=== PATIENT | female | born 1985 | race Caucasian/White ===

== ENCOUNTER → 2017-09-05 | Outpatient (CLI) | payer OTHER | END | disposition home or self-care (01) | LOC: C.PAPS 16:29 | PROVIDERS: ATTEND Obstetrics & Gynecology | DX: Z12.4 Encounter for screening for malignant neoplasm of cervix (principal) ==

== ENCOUNTER 2019-06-26 07:44 | Inpatient (IN) ==
[2019-06-26] MEDS ORDERED: OXYTOCIN 30 UNITS/500 ML BAG IV PRN ×3 (09:04→20:37)
[2019-06-26] MEDS: LACTATED RINGER'S 1,000 ML IV PRN ×3 (09:20→17:44)
[2019-06-26 09:39] LABS: Hematocrit (blood only) 35.9 % (37-47); Hemoglobin 12.5 g/dL (12.0-16.0); Mean Corpuscular Hemoglobin 32.8 pg (25-34); Mean Corpuscular Volume 94.2 fL (80-100); Platelet Count 217 K/uL (130-400); RDW Coefficient of Variation 12.6 % (11.5-14.5); RDW Standard Deviation 43.1 fL (36.4-46.3); Red Blood Count 3.81 M/uL (4.2-5.4); White Blood Count 10.92 K/uL (4.8-10.8)
[2019-06-26 09:43] LABS: Mean Corpuscular Hgb Conc 34.8 g/dL (32-36)
--- NOTE | 2019-06-26 13:28 | Labor Progress Brief Note ---
Date of Service June 26, 2019 Subjective Reason For Note: Routine Evaluation Tolerating Contractions Assessment & Plan (1) Elderly primigravida, antepartum: Induction for post dates. On pitocin. Unable to AROM despite attempt with amnihook and finger cot. Will allow a few more hours' progress then try again. Patient not interested in epidural yet. Pit @ 11. Present on Admission?: Yes Physical Exam Genitourinary: Manual OB Exam: + cervical dilation 3 cm, + cervical effacement 90%, + station -2 and + amniotic fluid (attempt to AROM but not successful.) OB Exam Monitor Tracing: + external FHT monitor used (Cat 1), + external uterine monitor used (?Q2 when well traced. Lots of maternal repositioning artifact.) and + category I Results & Data Vital Signs (Past 12 Hours) Vital Signs Temp Pulse Resp BP 06/26/19 12:31 76 20 131/66 06/26/19 11:30 75 118/62 06/26/19 11:29 98.4 F 22 06/26/19 10:36 79 118/68 06/26/19 10:35 20 06/26/19 09:31 76 118/65 06/26/19 07:52 93 H 125/72 06/26/19 07:51 98.2 F 93 H 20 125/72
--- NOTE | 2019-06-26 16:22 | Labor Progress Brief Note ---
Date of Service June 26, 2019 Subjective Tolerating Contractions Assessment & Plan (1) Elderly primigravida, antepartum: Induction for post dates. On pitocin, reduced earlier per RN for tachysystole. Unable to AROM despite yet another attempt with amnihook. Patient with poor tolerance of exam. Encouraged epidural; she wanted a few minutes to consider before making decision. Physical Exam Genitourinary: Manual OB Exam: + cervical dilation (3-4cm) 3 cm, + cervical effacement 90%, + station -2 and + amniotic fluid (attempt to AROM again not successful.) OB Exam Monitor Tracing: + external FHT monitor used (Cat 1), + external uterine monitor used (?Q2 when well traced. Lots of maternal repositioning artifact.) and + category I Results & Data Vital Signs (Past 12 Hours) Vital Signs Temp Pulse Resp BP 06/26/19 14:48 71 135/78 06/26/19 13:33 76 20 131/74 06/26/19 13:00 18 06/26/19 12:31 76 20 131/66 06/26/19 11:30 75 118/62 06/26/19 11:29 98.4 F 22 06/26/19 10:36 79 118/68 06/26/19 10:35 20 06/26/19 09:31 76 118/65 06/26/19 07:52 93 H 125/72 06/26/19 07:51 98.2 F 93 H 20 125/72
[2019-06-26] MEDS ORDERED: ePHEDrine sulfate 50 MG/ML AMP ONE (17:06)
[2019-06-26] MEDS ORDERED: BUPIVACAINE 0.25% 30 ML VIAL ONE (17:06)
[2019-06-26] MEDS ORDERED: fentaNYL 2MCG/ML ROPIV 1.25MG/ML 100 ML BAG EPI ONE (17:07)
[2019-06-26] MEDS: fentaNYL citrate 100 MCG/2 ML VIAL ONE ×2 (17:45→18:01)
--- NOTE | 2019-06-26 17:53 | Anesthesiology Consultation ---
Date of Service June 26, 2019 Assessment & Plan Chart Review Chart Review: Acceptable Risk for Labor Epidural Consults Requested none History Height/Weight Height: 5 ft 3.5 in Weight: 81.647 kg Allergies Allergy/AdvReac Type Severity Reaction Status Date / Time No Known Drug Allergies Allergy Unknown Verified 06/26/19 08:44 Medications Home Medications Medication Instructions Recorded Confirmed Last Taken levothyroxine 50 mcg PO DAILY 06/23/19 06/26/19 06/26/19 06:00 vit no.720-[id number] 1 tab PO DAILY 06/23/19 06/26/19 06/25/19 20:00 [ Vitamin] Active Medications Generic Name Dose Route Start Last Admin Trade Name Freq PRN Reason Stop Dose Admin Lactated Ringer's 1,000 mls @ 125 mls/hr 06/26/19 09:04 06/26/19 17:44 Lr IV 06/28/19 09:03 125 mls/hr .Q8H PRN Administration L&D Protocol Protocol Oxytocin 30 units in 500 mls @ 5 mls/hr 06/26/19 09:04 06/26/19 14:36 Pitocin IV 06/28/19 09:03 0.3 units/hr .Q24H PRN 5 mls/hr Labor Induction/Augmentation Titration Protocol 0.3 UNITS/HR Past Medical History Medical History Endometrial polyp Female infertility Hypothyroidism No known health problems Past Family History Family History Grandmother (Paternal) Family hx of colon cancer Heart disease Hypertension Grandfather (Paternal) Heart disease Mother Hypertension Other Ovarian cancer Past Surgical History Surgical History History of oral surgery History of tooth extraction wisdom teeth S/P dilation and curettage Social History Smoking Status: Never smoker Do You Dip or Chew Tobacco: No Hx Alcohol Use: No Alcohol type: beer alcohol intake frequency: a few times a month Hx Substance Use: No substance use type: does not use Physical Exam Vital Signs Last Vital Signs Temp 36.8 C 06/26/19 16:34 Pulse 100 H 06/26/19 17:51 Resp 24 06/26/19 16:34 BP 132/61 06/26/19 17:51 Pulse Ox 97 06/26/19 17:50 Testing Laboratory Results 06/26/19 09:14
[2019-06-26] MEDS ORDERED: ePHEDrine sulfate 50 MG/ML AMP IV PRN (17:54)
[2019-06-26] MEDS ORDERED: fentaNYL 2MCG/ML ROPIV 1.25MG/ML 100 ML BAG EPI PRN (17:54)
[2019-06-26] MEDS ORDERED: NALOXONE HCL 1 MG in SODIUM CHLORIDE 0.9% 1000ML 1,000 ML IV PRN (17:54)
[2019-06-26] MEDS ORDERED: DiphenhydrAMINE HCL 50 MG/ML VIAL IV PRN (17:54)
[2019-06-26] MEDS ORDERED: NALOXONE HCL 0.4 MG/1 ML VIAL/CARP IV PRN (17:54)
[2019-06-26] MEDS ORDERED: NALBUPHINE HCL INJ 10 MG/ML AMP IV PRN (17:54)
[2019-06-26] MEDS ORDERED: LIDOCAINE HCL 2% MPF (LOCAL) 5 ML VIAL INFIL ONE (17:58)
--- NOTE | 2019-06-26 18:26 | Labor Progress Brief Note ---
Date of Service June 26, 2019 Subjective Patient comfortable with epidual per RN. Using peanut ball. Resting. Assessment & Plan (1) Elderly primigravida, antepartum: Patient continues postdates induction. Now ruptured, on pitocin, with e pidural, and resting. Present on Admission?: Yes Physical Exam Physical Exam: No cervix check at this time. SROM has now occurred with LOF clear per RN. FHT Cat 1. [place] Q2min. Results & Data Vital Signs (Past 12 Hours) Vital Signs Temp Pulse Resp BP Pulse Ox 06/26/19 18:24 79 154/70 H 06/26/19 18:20 88 97 06/26/19 18:19 86 130/68 06/26/19 18:15 93 H 96 06/26/19 18:13 77 131/60 94 06/26/19 18:10 99 H 135/64 97 06/26/19 18:05 81 98 06/26/19 18:03 112 H 132/61 06/26/19 18:01 86 142/67 H 06/26/19 18:00 84 99 06/26/19 17:59 94 H 133/63 06/26/19 17:57 82 128/63 06/26/19 17:55 102 H 122/61 95 06/26/19 17:53 111 H 123/60 06/26/19 17:51 100 H 132/61 06/26/19 17:50 101 H 97 06/26/19 17:49 83 128/61 06/26/19 17:47 82 128/64 06/26/19 17:45 97 H 123/56 L 99 06/26/19 17:43 110 H 125/58 L 06/26/19 17:41 100 H 124/55 L 06/26/19 17:40 100 H 100 06/26/19 17:35 106 H 100 06/26/19 17:30 102 H 100 06/26/19 17:25 99 H 99 06/26/19 16:34 98.2 F 86 24 128/82 06/26/19 14:48 71 135/78 06/26/19 13:33 76 20 131/74 06/26/19 13:00 18 06/26/19 12:31 76 20 131/66 06/26/19 11:30 75 118/62 06/26/19 11:29 98.4 F 22 06/26/19 10:36 79 118/68 06/26/19 10:35 20 06/26/19 09:31 76 118/65 06/26/19 07:52 93 H 125/72 06/26/19 07:51 98.2 F 93 H 20 125/72
--- NOTE | 2019-06-26 20:32 | Delivery Summary ---
Vaginal Delivery Summary Date of Service June 26, 2019 Vaginal Delivery Summary DIAGNOSES: 1. Vines intrauterine at 41 3/7 gestation. 2. Induction of labor. 3. Group B Streptococcus Neg. PROCEDURE: Spontaneous vaginal delivery and repair of 1st degree laceration. SURGEON: Nevaeh Dhillon MD. WEAPONS DESIGNER: None. ESTIMATED BLOOD LOSS: 350 mL. COMPLICATIONS: None. PLACENTA: Spontaneous and intact with a 3-vessel cord. DISPOSITION: Stable to labor and delivery. DESCRIPTION: The patient pushed well and brought the head to in OA position. The 's head was allowed to deliver with contraction force and no further active pushing, with the perineum protected during this time. The shoulders delivered easily with a maternal pushing effort. There was no nuchal cord. The left shoulder was anterior. The shoulders and body delivered without any difficulty, and the infant was placed on the maternal abdomen. There was noted to be terminal meconium. The was vigorous and moving all extremities, and making respiratory efforts. The cord was doubly clamped by the MD and then cut by the FOB. The placenta delivered spontaneously and was noted to be intact and with a 3VC. The cervix, vagina and perineum were examined and were found to have a first degree laceration that was repaired for cosmesis. The fundus was firm and lochia minimal immediately after delivery.
[2019-06-26] MEDS ORDERED: IBUPROFEN 600 MG TAB PO ONE (20:35)
[2019-06-26] MEDS ORDERED: BENZOCAINE 20% AER SPR 82.5 GM CAN EXT PRN (20:37)
[2019-06-26] MEDS ORDERED: OXYCODONE/ACETAMINOPHEN 5mg/325mg TAB PO PRN (20:37)
[2019-06-26] MEDS ORDERED: DIPHTHERIA/TETANUS/PERTUSSIS 0.5 ML SYR/VIAL IM ONE (20:37)
[2019-06-26] MEDS ORDERED: HYDROCORTISONE ACETATE 25 MG SUPP PR PRN (20:37)
[2019-06-26] MEDS ORDERED: ACETAMINOPHEN 325 MG TAB PO PRN (20:37)
[2019-06-26] MEDS ORDERED: SUPERCREAM 0.870% 15 GM JAR EXT PRN (20:37)
--- NOTE | 2019-06-26 20:56 | Anesthesia Procedure Note ---
Date of Service June 26, 2019 Anesthesia Post Epidural Note Vital Signs Vital Signs: Temp Pulse Resp BP Pulse Ox 36.8 C 114 H 18 123/66 97 06/26/19 16:34 06/26/19 20:46 06/26/19 20:46 06/26/19 20:46 06/26/19 20:25 Pain Intensity Bilateral Lower Abdomen: Pain Intensity: 4 Notes Mental Status: alert / awake / arousable Nausea / Vomiting: adequately controlled Pain: adequately controlled Airway Patency, RR, SpO2: stable & adequate BP & HR: stable & adequate Hydration State: stable & adequate Neuraxial Anesthesia: was administered and sensory block is resolving Anesthetic Complications: no major complications apparent and Pt Satisfied with anesthetic care Epidural: Removed without complications and With tip intact
[2019-06-27] MEDS: IBUPROFEN 600 MG TAB PO PRN ×5 (00:38→20:35)
[2019-06-27] MEDS: DOCUSATE SODIUM 100 MG CAP PO SCH ×4 (02:55→20:35)
[2019-06-27] MEDS: LEVOTHYROXINE SODIUM 50 MCG TABLET PO SCH (06:15)
--- NOTE | 2019-06-27 07:12 | Obstetrical Progress Note ---
Date of Service June 27, 2019 Assessment & Plan (1) Encounter for care and examination after delivery: 34 yo PPD1 s/p on 06/26. Doing well this AM, no complaints. Tolerating regular diet, encouraged ambulation around hallways. Continue supportive care, will consider discharge tomorrow. Day #:: 1 Subjective Ambulation: limited ambulation Voiding: no voiding problems Passing Gas:: Yes Diet Tolerance:: regular diet Lochia:: Moderate Feeding Type:: breast feeding Current Pain Level(1-10): 0 Physical Exam Constitutional well developed and well nourished Respiratory normal respiratory effort; no respiratory distress, no labored breathing and no cough Auscultation: no crackles, no rales, no rhonchi and no wheezes Cardiovascular Rate/Rhythm: regular rate and regular rhythm Heart Sounds: no gallop, no murmur and no cardiac rub Extremities: + pedal edema Gastrointestinal (Abdomen) Inspection/Auscultation: + abdomen distended and normal bowel sounds Percussion/Palpation: + abdomen tender (reasonably) and abdomen soft; no guarding Musculoskeletal No calf pain or tenderness to palpation. Genitourinary Uterus firm, palpable at umbilicus. Results & Data Vital Signs (Past 12 Hours) Vital Signs Temp Pulse Pulse Resp BP BP Pulse Ox 06/27/19 04:45 37.0 C 80 16 128/77 96 06/27/19 00:05 36.8 C 90 17 121/69 95 06/26/19 23:00 37.2 C 06/26/19 22:46 100 H 134/61 06/26/19 22:31 103 H 18 134/62 06/26/19 22:16 105 H 129/64 06/26/19 22:01 102 H 18 138/82 06/26/19 21:46 100 H 132/76 06/26/19 21:31 102 H 18 134/77 06/26/19 21:16 110 H 18 130/65 06/26/19 21:01 109 H 18 122/65 06/26/19 20:46 114 H 18 123/66 06/26/19 20:31 109 H 18 126/68 06/26/19 20:25 121 H 97 06/26/19 20:20 115 H 97 06/26/19 20:15 142 H 98 06/26/19 20:14 169 H 93 06/26/19 20:10 162 H 96 06/26/19 20:07 169 H 93 06/26/19 20:05 165 H 97 06/26/19 20:02 137 H 89 L 06/26/19 20:00 155 H 96 06/26/19 19:58 137 H 142/64 H 06/26/19 19:56 146 H 94 06/26/19 19:55 127 H 98 06/26/19 19:50 139 H 97 06/26/19 19:46 135 H 93 06/26/19 19:45 136 H 98 06/26/19 19:44 137 H 140/74 06/26/19 19:40 146 H 99 06/26/19 19:35 129 H 96 06/26/19 19:30 114 H 99 06/26/19 19:29 118 H 94 06/26/19 19:25 97 H 98 06/26/19 19:20 82 99 06/26/19 19:15 120 H 98 06/26/19 19:13 92 H 145/76 H 06/26/19 19:10 109 H 98 Resident Activity Tracking Resident Involvement: Resident Care Provided Care Provided: OB Delivery
[2019-06-27] MEDS: LACTATED RINGER'S 1,000 ML IV SCH ×2 (07:17→13:07)
[2019-06-27 08:06] LABS: Hematocrit (blood only) 30.6 % (37-47); Hemoglobin 10.7 g/dL (12.0-16.0); Mean Corpuscular Volume 91.6 fL (80-100); Mean Platelet Volume 9.6 fL (7.4-10.4); Platelet Count 202 K/uL (130-400); RDW Coefficient of Variation 12.5 % (11.5-14.5); RDW Standard Deviation 41.9 fL (36.4-46.3); Red Blood Count 3.34 M/uL (4.2-5.4); White Blood Count 20.31 K/uL (4.8-10.8)
[2019-06-27] MEDS: PRENATAL VITAMIN 1 TAB PO SCH (09:53)
[2019-06-28] MEDS: IBUPROFEN 600 MG TAB PO PRN ×2 (04:16→08:32)
[2019-06-28] MEDS: LEVOTHYROXINE SODIUM 50 MCG TABLET PO SCH (06:02)
--- NOTE | 2019-06-28 06:19 | Obstetrical Progress Note ---
Date of Service <Ariane Davey MD - Last Filed: 06/28/19 07:18> June 28, 2019 Assessment & Plan <Ariane Davey MD - Last Filed: 06/28/19 07:18> (1) Encounter for care and examination after delivery: 34 yo F PPD2 s/p with rapid progression into labor. Doing well with no complaints. WBC peaked at 20k but is now downtrending to 12.26k. Hg stable at 10. Discussed discharge instructions and signs for concern and calling the office. D/C home today. Subjective <Ariane Davey MD - Last Filed: 06/28/19 07:18> Ambulation: ambulating normally Voiding: no voiding problems Passing Gas:: Yes Diet Tolerance:: regular diet Lochia:: Small Feeding Type:: breast feeding Current Pain Level(1-10): 0 Doing well this AM, no complaints. Discussed discharge instructions and reasons to come back in to the office. All questions were answered. Constitutional: + fatigue; no fever and no chills Respiratory: no cough and no dyspnea No shortness of breath Cardiovascular: + edema; no chest pain, no syncope and no calf pain Breast: no breast pain Gastrointestinal: + cramping; no abdominal pain, no nausea, no vomiting, no constipation and no diarrhea/loose stools Genitourinary (female): no dysuria and no difficulty urinating Neurologic: no headache(s) Physical Exam <Ariane Davey MD - Last Filed: 06/28/19 07:18> Constitutional well developed and well nourished Respiratory normal respiratory effort; no respiratory distress, no labored breathing and no cough Auscultation: no crackles, no rales, no rhonchi and no wheezes Cardiovascular Rate/Rhythm: regular rate and regular rhythm Heart Sounds: no gallop, no murmur and no cardiac rub Extremities: no pedal edema Gastrointestinal (Abdomen) Inspection/Auscultation: + abdomen distended and normal bowel sounds Percussion/Palpation: abdomen soft; abdomen nontender (reasonably) and no guarding Musculoskeletal no tenderness to palpation of calves bilaterally Genitourinary Uterus small and firm, palpable in midline at level of umbilicus, some tenderness to palpation. Results & Data <Ariane Davey MD - Last Filed: 06/28/19 07:18> Vital Signs (Past 12 Hours) Vital Signs Temp Pulse Pulse Resp BP Pulse Ox 06/27/19 23:25 36.8 C 76 18 123/71 06/27/19 19:30 36.6 C 83 18 132/76 97 06/28/19 06/27/19 Range/Units 06:17 06:43 WBC 12.26 H 20.31 H (4.8-10.8) K/uL RBC 3.05 L 3.34 L (4.2-5.4) M/uL Hgb 10.0 L 10.7 L (12.0-16.0) g/dL Hct 29.1 L 30.6 L (37-47) % MCV 95.4 91.6 (80-100) fL MCH 32.8 32.0 (25-34) pg MCHC 34.4 35.0 (32-36) g/dL RDW Std Deviation 44.2 41.9 (36.4-46.3) fL RDW Coeff of [place] 12.7 12.5 (11.5-14.5) % Plt Count 174 202 (130-400) K/uL MPV 9.4 9.6 (7.4-10.4) fL Immature Gran % (Auto) 0.4 % Neut % (Auto) 67.1 % Lymph % (Auto) 24.1 % [place] % (Auto) 6.3 % Eos % (Auto) 2.0 % Baso % (Auto) 0.1 % Immature Gran # (Auto) 0.05 H (0.00-0.02) K/uL Neut # (Auto) 8.23 H (1.4-6.5) K/uL Lymph # (Auto) 2.96 (1.2-3.4) K/uL [place] # (Auto) 0.77 H (0.11-0.59) K/uL Eos # (Auto) 0.24 (0-0.5) K/uL Baso # (Auto) 0.01 (0-0.2) K/uL <Norm Olivarez Jr, MD, FACOG - Last Filed: 06/28/19 07:48> Co-Signing Physician Notes Resident Physician Supervision Note: I was present with Dr. Davey during the history and exam. I discussed the case with the resident and agree with the findings and plan as documented in the note. Any exceptions or clarifications are listed here: Doing well. D/C instructions given/reviewed/ F/U in 6 weeks for PP check Documented By: Norm Olivarez Jr, MD, FACOG Resident Activity Tracking <Ariane Davey MD - Last Filed: 06/28/19 07:18> Resident Involvement: Resident Care Provided Care Provided: OB Delivery
[2019-06-28 06:26] LABS: Basophils # (auto) 0.01 K/uL (0-0.2); Basophils % (auto) 0.1 %; Eosinophils # (auto) 0.24 K/uL (0-0.5); Hematocrit (blood only) 29.1 % (37-47); Immature Granulocytes # (auto) 0.05 K/uL (0.00-0.02); Immature Granulocytes % (auto) 0.4 %; Lymphocytes # (auto) 2.96 K/uL (1.2-3.4); Lymphocytes % (auto) 24.1 %; Mean Corpuscular Hemoglobin 32.8 pg (25-34); Mean Corpuscular Hgb Conc 34.4 g/dL (32-36); Mean Corpuscular Volume 95.4 fL (80-100); Mean Platelet Volume 9.4 fL (7.4-10.4); Monocytes # (auto) 0.77 K/uL (0.11-0.59); Monocytes % (auto) 6.3 %; Neutrophils # (auto) 8.23 K/uL (1.4-6.5); Neutrophils % (auto) 67.1 %; Platelet Count 174 K/uL (130-400); RDW Coefficient of Variation 12.7 % (11.5-14.5); RDW Standard Deviation 44.2 fL (36.4-46.3); Red Blood Count 3.05 M/uL (4.2-5.4); White Blood Count 12.26 K/uL (4.8-10.8)
[2019-06-28] MEDS: DOCUSATE SODIUM 100 MG CAP PO SCH (08:32)
[2019-06-28] MEDS: PRENATAL VITAMIN 1 TAB PO SCH (11:58)
== END 2019-06-28 13:26 | disposition home or self-care (01) | DRG 807 ==
LOC: 4S1 07:44 → 4S2 23:57

== ENCOUNTER 2022-06-14 07:48 | Inpatient (IN) ==
[2022-06-14] MEDS ORDERED: LACTATED RINGER'S 1,000 ML IV PRN (07:49)
[2022-06-14] MEDS ORDERED: OXYTOCIN 30 UNITS/500 ML BAG IV PRN ×3 (07:49→15:12)
[2022-06-14] MEDS ORDERED: LIDOCAINE 1% LOCAL 20 ML VIAL INFIL PRN (07:49)
[2022-06-14 08:38] LABS: Hematocrit (blood only) 32.4 % (34.1-44.9); Hemoglobin 11.2 g/dl (12.0-16.0); Mean Corpuscular Hemoglobin 32.6 pg (25.0-34.0); Mean Corpuscular Hgb Conc 34.6 g/dL (32.0-36.0); Mean Corpuscular Volume 94.2 fL (80.0-100.0); Mean Platelet Volume 10.5 fL (9.4-12.3); Platelet Count 170 K/uL (130-400); RDW Coefficient of Variation 12.4 % (11.5-14.5); RDW Standard Deviation 42.5 fL (36.4-46.3); Red Blood Count 3.44 M/uL (3.93-5.22); White Blood Count 10.81 K/ul (4.8-10.8)
--- NOTE | 2022-06-14 08:47 | Labor Progress Brief Note ---
Date of Service June 14, 2022 Subjective Patient admitted for planned IOL. Cramping yesterday, minimal now. Hoping to attempt NCB. Assessment & Plan (1) Supervision of elderly multigravida: Plan: Induction with pitocin to begin this morning, AROM at future exam. Epidural if desired which currently the patient is not planning on. Admission and Anticipated Discharge Date Admission Date: June 14, 2022 Physical Exam Genitourinary: 50/-2 Intact membranes FHT Cat 1 with +scalp stim during exam [place] irregular/rare ctx Vertex palpable, presenting at cervix Results & Data ([facility]) Vital Signs (Past 12 Hours) Vital Signs Temp Pulse Resp BP 06/14/22 07:58 18 06/14/22 07:58 98.2 F 18 06/14/22 08:01 85 142/76 H Coding Level of Care Code None Diagnoses Supervision of elderly multigravida O09.529
--- NOTE | 2022-06-14 08:48 | History & Physical Report ---
Date of Service June 14, 2022 Assessment & Plan (1) Encounter for induction of labor: Plan: Patient is a 37 yo at 41+1 WGA presenting to labor and delivery for induction d/t postdates. Blood type: A+, GBS neg, rubella 13 index Plan to start oxytocin and rupture membranes later if necessary Proceed with labor and vaginal delivery (2) Post-dates : Admission and Anticipated Discharge Date Admission Date: June 14, 2022 History of Present Illness Chief Complaint: IOL Primary Care Provider: Ovi Michel III, CRNP Patient is a 37 yo female currently at 41+1WGA with an GEE 06/05/2022 as determined by LMP who is here for IOL d/t postdates. Her was complicated by AMA and hypothyroidism. Pt feeling dull, non painful, nontimeable contractions; movement present; denies fluid loss except for a small amount of what the pt believes was urine when she coughed earlier today; denies bloody show External FHT and external uterine monitors used; category 1 tracing; normal FHT variability Had regular appointments with OB. Labs: 11/2021 Blood type: A+ Antibody screen: neg Hgb: 11.2 (today) Hct: 32.4 (today) WBC: 10.81 (today) Plt: 170 (today) Rubella: 13 index VDRL/RPR: neg Gonorrhea: neg Chlamydia: neg HIV: neg HbSAg: neg GBS: neg Other screens: cff-DNA: declined CF: neg per prior SMA: neg per prior Allergies Allergy/AdvReac Type Severity Reaction Status Date / Time No Known Drug Allergies Allergy Unknown Verified 06/13/22 10:27 Home Medications Medication Instructions Recorded Confirmed Type prenat.vits,suleman,woe-uhrw-opozv 1 tab PO DAILY 10/26/21 06/13/22 History levothyroxine 50 mcg tablet See Rx Instructions .Route 05/26/22 06/13/22 Rx .COMPLEX #90 tabs famotidine 10 mg/mL intravenous 10 mg PO HS 06/13/22 06/13/22 History solution Patient History Medical History Endometrial polyp Female infertility Hypothyroidism No known health problems Supervision of elderly multigravida Uterine fibroid complicating care, baby not yet delivered Surgical History History of oral surgery History of tooth extraction wisdom teeth S/P dilation and curettage Family History Grandmother (Paternal) Family hx of colon cancer Heart disease Hypertension Grandfather (Paternal) Heart disease Mother Hypertension Glaucoma Other Ovarian cancer Denies family history of Prostate cancer Myocardial infarction Breast cancer Colorectal cancer Social History Smoking Status: Never smoker Second Hand Exposure: No; Hx Alcohol Use: No Hx Substance Use: No Preferred Language: Tunisian Communication Ability: Effective Visual Impairment: No Limitations Hearing Ability: Normal Webbing Seamer Pound Net Required: No Beliefs That Will Affect Care: Shinto marital status: marital status details: Arjun Bridges (33) [phone] Current Living Situation: Spouse Current Living Situation Comment: lives with spouse, child, no pets. current occupational status: employed current occupation: [employer] How many Children do You have: 1 Feels Safe at Home: Yes Childhood Exposure to Second-Hand Smoke: No caffeine: Yes during the past year weight has: decreased > 10 lbs Dental Care, Regularly: Yes Physical Activity Frequency: Daily Seatbelt Use: always Sunscreen Use: Yes Assistive Devices: None Review of Systems Denies fever, chills, sweats. Denies SOB, difficulty breathing, chest pain, palpitations, and chest pressure. Denies breast pain. Denies dysuria. Denies headache or changes in vision. Physical Exam Physical Exam: General: Alert and oriented. No acute distress CV: Regular rate and rhythm. No murmurs. Respiratory: CTA bilaterally. No rhonchi, wheezes, or crackles. No increased work of breathing. Abdomen: Gravid; Soft, nontender upon palpation Pelvic: Dilated 4 cm; Effacement 50%; Station -[address] Dhillon Lower extremities: No LE edema. No deep calf pain. Esmer's negative bilaterally. Pt wearing compression socks "prophylactically" Results & Data ([facility]) Vital Signs (Past 12 Hours) Vital Signs Temp Pulse Resp BP 06/14/22 07:58 18 10/12/22 07:58 36.8 C 18 10/12/22 08:01 85 142/76 H Resident Activity Tracking Resident Involvement: Resident Care Provided Care Provided: OB Delivery
[2022-06-14] MEDS ORDERED: BENZOCAINE 20% AER SPR 82.5 GM CAN EXT PRN (15:12)
[2022-06-14] MEDS ORDERED: ACETAMINOPHEN 325 MG TAB PO PRN (15:12)
[2022-06-14] MEDS ORDERED: DIPHTHERIA/TETANUS/PERTUSSIS 0.5 ML SYR/VIAL IM ONE (15:12)
[2022-06-14] MEDS ORDERED: bisacodyL 10 MG SUPP PR PRN (15:12)
[2022-06-14] MEDS ORDERED: HYDROCORTISONE ACETATE 25 MG SUPP PR PRN (15:12)
--- NOTE | 2022-06-14 15:15 | Delivery Summary ---
Vaginal Delivery Summary Date of Service June 14, 2022 Vaginal Delivery Summary [facility] DIAGNOSES: 1. Vines intrauterine at 41w2d gestation. 2. Induction of Labor. 3. Group B Streptococcus Neg. PROCEDURE: Spontaneous vaginal delivery and repair of 1st degree laceration. SURGEON: Nevaeh Dhillon MD. PUBLIC ACCOUNTANT: None. ESTIMATED BLOOD LOSS: 250 mL. COMPLICATIONS: None. PLACENTA: Spontaneous and intact with a 3-vessel cord. DISPOSITION: Stable to labor and delivery. DESCRIPTION: The patient pushed well and brought the head to in OA position. The 's head was allowed to deliver with contraction force and no further active pushing, with the perineum protected during this time. There was no nuchal cord. The left shoulder was anterior. Bulb suction was provided with the head at the perineum due to thick meconium. The mother's legs were placed into [place] position as a precaution. The shoulders and body delivered without any difficulty, and the infant was placed on the maternal abdomen. It was vigorous and moving all extremities, and making respiratory efforts. The cord was doubly clamped by the MD and then cut by the FOB. The placenta delivered spontaneously and was noted to be intact and with a 3VC. The cervix, vagina and perineum were examined and were found to have a 1st degree laceration involving only the skin of the perineum, which was infiltrated with 1% plain lidocaine 12cc and repaired using 3-0 vicryl in a running locked manner. The fundus was firm and lochia minimal immediately after delivery. [facility] Vaginal Delivery Charge Vaginal Delivery Codes: 68625 global code for the antepartum, delivery, and post- Delivery Type Details: [facility]
[2022-06-14] MEDS: IBUPROFEN 600 MG TAB PO PRN ×2 (15:45→19:52)
[2022-06-14] MEDS: DOCUSATE SODIUM 100 MG CAP PO SCH (19:52)
[2022-06-15] MEDS: IBUPROFEN 600 MG TAB PO PRN ×3 (00:22→10:39)
--- NOTE | 2022-06-15 05:37 | Obstetrical Progress Note ---
Date of Service <Mercy AtkinsonDO susie - Last Filed: 06/15/22 06:20> June 15, 2022 Assessment & Plan <Mercy AtkinsonDO susie - Last Filed: 06/15/22 06:20> (1) care following vaginal delivery: Patient is PPD 1 s/p and doing well. - Eating well, voiding well, ambulating well - Vitals reviewed and within normal limits - Pain well controlled with analgesics - OOB, ambulation, diet progression as tolerated - Blood type: A+, GBS neg, rubella immune - Plan to discharge today - After discharge, 6 [address] follow up [address] Dhillon <Nevaeh Dhillon MD - Last Filed: 06/15/22 07:17> (1) care following vaginal delivery: Subjective <Mercy AtkinsonDO susie - Last Filed: 06/15/22 06:20> Patient is a 37 yo female who is now PPD #1 following spontaneous vaginal delivery at 41+1 weeks. Reports feeling well this morning. She endorses abdominal cramping and vaginal/perineal soreness and 2/10 pain well managed on analgesics. Voiding without issue. Tolerating regular meals overnight and able to ambulate some. She has passed gas but no bowel movements. Persistent lochia with some improvement this morning. Currently breast feeding. Review of Systems Denies fever, chills, sweats. Denies SOB, difficulty breathing, chest pain, palpitations, and chest pressure. Denies breast pain. Denies dysuria. Denies headache or changes in vision. Physical Exam <Mercy Hui DO Ankit - Last Filed: 06/15/22 06:20> General: Alert and oriented. No acute distress. CV: Regular rate and rhythm. No murmurs. Respiratory: CTA bilaterally. No rhonchi, wheezes, or crackles. No increased work of breathing. Abdomen: Positive bowel sounds. Soft, nontender, non distended. Uterus: Fundus firm and palpable 3 cm below the umbilicus. Lower extremities: No LE edema. No deep calf pain. Esmer's negative bilaterally. Results & Data ([facility]) <Mercy BaigKathi Pham DO - Last Filed: 06/15/22 06:20> Vital Signs (Past 12 Hours) Vital Signs Temp Pulse Resp BP Pulse Ox O2 Del Method 06/15/22 03:05 36.5 C 73 17 116/74 97 Room Air 06/14/22 23:30 36.8 C 76 16 122/72 95 Room Air 06/14/22 19:40 36.8 C 78 17 117/74 96 Room Air 06/14/22 18:20 36.6 C 75 18 133/74 99 Room Air <Nevaeh Dhillon MD - Last Filed: 06/15/22 07:17> Co-Signing Physician Notes Resident Physician Supervision Note: I interviewed and examined the patient. Discussed with Dr. Pham and agree with findings and plan as documented in the note. Any exceptions or clarifications are listed here: [ ] Documented By: Nevaeh Dhillon MD, FACOG Resident Activity Tracking <Mercy Pham DO - Last Filed: 06/15/22 06:20> Resident Involvement: Resident Care Provided Care Provided: OB Delivery
[2022-06-15] MEDS ORDERED: LEVOTHYROXINE SODIUM 50 MCG TABLET PO SCH (06:30)
[2022-06-15 06:38] LABS: Hematocrit (blood only) 31.4 % (34.1-44.9); Hemoglobin 10.8 g/dl (12.0-16.0)
[2022-06-15] MEDS ORDERED: PRENATAL VITAMIN 1 TAB PO SCH (08:00)
[2022-06-15] MEDS: DOCUSATE SODIUM 100 MG CAP PO SCH (08:11)
[2022-06-15] MEDS ORDERED: bisacodyL 5 MG TABEC PO SCH (20:00)
== END 2022-06-15 16:14 | disposition home or self-care (01) | DRG 807 ==
LOC: 4S1 07:48 → 4E2 17:20